=== PATIENT | male | born 1990 | race African-American/Black ===

== ENCOUNTER → 2017-02-01 | Outpatient (REF) | payer OTHER | LOC: M SFHCLERA 09:43 | PROVIDERS: ATTEND Nurse Practitioner Family | DX: J02.9 Acute pharyngitis, unspecified (principal) ==

== ENCOUNTER → 2017-03-13 | Outpatient (REF) | payer OTHER | LOC: M LAB REF 13:08 | PROVIDERS: ATTEND Physician Assistant Medical | DX: E55.9 Vitamin D deficiency, unspecified (principal) ==